=== PATIENT | male | born 1995 | race Caucasian/White ===

== ENCOUNTER 2020-08-11 05:20 | Day surgery (SDC) | payer BC ==
[~2020-08-11] VITALS: Ht 193 cm; Wt 114.0 kg
[~2020-08-11 05:20] MED LIST: IBUP-1222 PO; OXYC-302 PO
[2020-08-11] MEDS ORDERED: LIDOCAINE 1%, 20ML ONE (06:02)
[2020-08-11] MEDS ORDERED: BUPIVACAINE/PF 0.5% ONE (06:02)
[2020-08-11] MEDS ORDERED: TYLENOL PO (06:15)
[2020-08-11 06:16] VITALS: BP 134/95
[2020-08-11] MEDS ORDERED: LACTATED RINGERS 1,000 ML IV SCH (06:30)
[2020-08-11] MEDS ORDERED: CHLORHEXIDINE 15 ML UDC PO ONE (06:30)
[2020-08-11] MEDS ORDERED: MIDAZOLAM 1 MG/ML, 2ML ONE (06:42)
[2020-08-11] MEDS ORDERED: FENTANYL PF 100 MCG/2ML ONE ×3 (06:42→07:55)
[2020-08-11] MEDS ORDERED: ONDANSETRON 2MG/ML, 2ML ONE (06:52)
[2020-08-11] MEDS ORDERED: PROPOFOL 10 MG/ML, 20ML ONE (06:52)
[2020-08-11] MEDS ORDERED: CEFAZOLIN 1,000 MG ONE (06:52)
[2020-08-11] MEDS ORDERED: PROPOFOL 50 ML ONE (07:02)
[2020-08-11] MEDS ORDERED: ACETAMINOPHEN 650 MG/20.3 ML UDC ONE (07:55)
[2020-08-11] MEDS ORDERED: OXYcodone 5 MG/5 ML ORAL.SOL UDC ONE (07:55)
[2020-08-11] MEDS: OXYcodone 5 MG/5 ML ORAL.SOL UDC PO PRN ×2 (07:56→09:04)
[2020-08-11] MEDS: FENTANYL PF 100 MCG/2ML IV PRN ×3 (07:58→08:20)
[2020-08-11] MEDS ORDERED: HYDROmorphone 1 MG/ML, 1ML INJ IVPush PRN (08:00)
[2020-08-11] MEDS ORDERED: METHOCARBAMOL 1,000 MG in DEXTROSE 5% 100 ML IV PRN (08:00)
[2020-08-11] MEDS ORDERED: hydrALAzine 20 MG/ML, 1ML IV PRN (08:00)
[2020-08-11] MEDS ORDERED: LABETALOL 5MG/ML, 20ML IV PRN (08:00)
[2020-08-11] MEDS ORDERED: ONDANSETRON 2MG/ML, 2ML IVPush PRN (08:00)
[2020-08-11] MEDS ORDERED: ACETAMINOPHEN 325 MG TABLET PO PRN (08:00)
[2020-08-11] MEDS ORDERED: LORazepam 2 MG/ML, 1ML IVPush PRN (08:00)
[2020-08-11] MEDS ORDERED: MEPERIDINE/PF 25MG/0.5ML IVPush PRN (08:00)
[2020-08-11] MEDS ORDERED: PROMETHAZINE 25 MG/ML, 1ML IVPush PRN (08:00)
== END 2020-08-11 10:05 | disposition home or self-care (01) ==
LOC: OUT 05:20
PROVIDERS: ATTEND Orthopaedic Surgery
DX: S62.324A Displaced fracture of shaft of fourth metacarpal bone, right hand, initial encounter for closed fracture (principal); S62.316A Displaced fracture of base of fifth metacarpal bone, right hand, initial encounter for closed fracture; Z20.822 Contact with and (suspected) exposure to COVID-19; Z79.891 Long term (current) use of opiate analgesic; Z87.891 Personal history of nicotine dependence; W22.8XXA Striking against or struck by other objects, initial encounter; Y93.89 Activity, other specified; Y92.89 Other specified places as the place of occurrence of the external cause; Y99.8 Other external cause status
CPT/HCPCS: 26608; 26615; 73120; 87635; C1713; C1776; J0690; J1170; J2250; J2405; J2704; J3010; J7120; 76000